=== PATIENT | female | born 1995 | race African-American/Black ===

== ENCOUNTER 2021-02-16 14:53 | Emergency (ER) | payer MEDICAID, OTHER ==
[~2021-02-16] VITALS: Ht 172.7 cm; Wt 48.7 kg
--- NOTE | 2021-02-16 16:40 | NUR ---
PT CAME IN CO OF RIGHT FLANK PAIN. WAS SEEN AT AND HAS BEEN TAKING ABX FOR 3 DAYS WITH MINIMAL RELIEF. SENT PT TO ER. PT REPORTS SHE IS 6 WEEKS BUT WANTS TO HAVE AN - APPT February. PT ALSO REPORTS FOUL GREEN DC FROM [facility]. PT RESTING IN [place] [facility]. BLANKETS PROVIDED
[2021-02-16] MEDS ORDERED: MORPHINE SULFATE 4 MG/ML, 1ML ONE (17:00)
[2021-02-16] MEDS ORDERED: SODIUM CHLORIDE 0.9% 1,000 ML IV SCH (17:00)
[2021-02-16] MEDS ORDERED: MORPHINE SULFATE 4 MG/ML, 1ML IV PRN (17:00)
[2021-02-16 17:04] LABS: BASOPHILS % (AUTO) 1 % (0-1); EOSINOPHILS % (AUTO) 3 % (1-7); LYMPHOCYTES % (AUTO) 28 % (22-44); MEAN CORPUSCULAR HEMOGLOBIN 29.3 pg (27.0-34.8); MEAN CORPUSCULAR HGB CONC 33.6 g/dL (32.4-35.8); MEAN PLATELET VOLUME 7.9 fL (7.4-10.4); MONOCYTES % (AUTO) 10 % (2-9); NEUTROPHILS % (AUTO) 59 % (42-75); PLATELET COUNT 373 x10^3/uL (130-400); RED BLOOD COUNT 4.58 x10^6/uL (3.82-5.3)
[2021-02-16 17:07] LABS: ALANINE AMINOTRANSFERASE 15 U/L (12-78); ALBUMIN 3.4 g/dL (3.4-5.0); ANION GAP 6 mmol/L (5-15); CALCIUM 8.2 mg/dL (8.5-10.1); CHLORIDE 106 mmol/L (98-107); CREATININE 0.75 mg/dL (0.55-1.02)
[2021-02-16 17:08] VITALS: BP 107/51
[2021-02-16 17:25] LABS: ALKALINE PHOSPHATASE 46 U/L (45-117); BILIRUBIN,TOTAL 0.9 mg/dL (0.2-1.0); TOTAL PROTEIN 7.1 g/dL (6.4-8.2)
--- NOTE | 2021-02-16 17:28 | NUR ---
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 REPORTS IMPROVED PAIN WITH RX. DENIES FURTHR NEEDS.
[2021-02-16 17:41] LABS: MICROSCOPIC INDICATED
[2021-02-16] MEDS ORDERED: POTASSIUM CHLORIDE 20 MEQ TAB.ER.PRT PO ONE (19:30)
[2021-02-16] MEDS ORDERED: CEFTRIAXONE 1,000 MG IM ONE (19:30)
[2021-02-16] MEDS ORDERED: AZITHROMYCIN 500 MG TABLET PO ONE (19:30)
[2021-02-16 19:31] LABS: CLUE CELLS NONE SEEN (NONE SEEN); WET PREP WBCS FEW (FEW)
[2021-02-16] MEDS ORDERED: AZITHROMYCIN 500 MG TABLET ONE (19:31)
[2021-02-16] MEDS ORDERED: CEFTRIAXONE 1,000 MG ONE (19:31)
[2021-02-16] MEDS ORDERED: POTASSIUM CHLORIDE 20 MEQ TAB.ER.PRT ONE (19:38)
== END 2021-02-16 20:54 | disposition home or self-care (01) ==
LOC: ED 15:48
DX: O23.11 Infections of bladder in pregnancy, first trimester (principal); R10.2 Pelvic and perineal pain; Z3A.01 Less than 8 weeks gestation of pregnancy
CPT/HCPCS: 36415; 80053; 81001; 84703; 85025; 87086; 87210; 87491; 87591; 87808; 93005; 96361; 96372; 96374; 99284; J0696; J2270; J7030